=== PATIENT | male | born 1995 | race African-American/Black ===

== ENCOUNTER 2025-08-18 18:21 | Inpatient (IN) | payer MEDICAID, SELFPAY ==
--- OUTSIDE RECORDS SUMMARY | 2025-08-17 22:24 | XMS_ITS | Encounter Summary ---
Author Organization [facility]stem Address [address] [place] [address] Phone Care Team Providers Care Associate Research Scientist Name Role Phone Required, No Pcp/Pcp Not Primary Care Provider U navailable Reason for Visit * Reason Comments Psychiatric Evaluation Encounter Details Date Type Department Care Team (Latest Contact Info) Description 08/17/2025 10:24 PM EDT - 08/18/2025 3:39 PM EDT Hospital Encounter [facility] - Emergency Department [address] [place] [id number] Ezekiel Worthy MD [address] [place] [id number] Barry Barrera MD [address] [place] [address] [place] [address] [phone] Patrice Nice MD [address] [place] [address] [phone] Acute psychosis (CMS/HCC) (Primary Dx); Marijuana use; Cocaine use; Fentanyl use disorder, mild, abuse (CMS/HCC); Paranoid schizophrenia (CMS/HCC) [F20.0] Discharge Disposition: Psychiatric Facility Social History Tobacco Use Types Packs/Day Years Used Date Smoking Tobacco: Never Assessed Sex and Gender Information Value Date Recorded Sex Assigned at Not on file Legal Sex Male 10:24 PM EDT Gender Identity Not on file Sexual Orientation Not on file documented as of this encounter Last Filed Vital Signs Vital Sign Reading Time Taken Comments Blood Pressure 124/63 08/18/2025 8:54 AM EDT Pulse 89 08/18/2025 3:26 PM EDT Temperature 37.1 C (98.8 F) 08/18/2025 3:26 PM EDT Respiratory Rate 16 08/18/2025 3:26 PM EDT Oxygen Saturation 100% 08/18/2025 3:26 PM EDT Inhaled Oxygen Concentration - - Weight 68 kg (150 lb) 08/17/2025 10:55 PM EDT Height 172.7 cm (5' 8 ) 08/17/2025 10:55 PM EDT Body Mass Index 22.81 08/17/2025 10:55 PM EDT documented in this encounter Functional Status * Calculated C-SSRS Risk Score (Lifetime/Recent) Answer Date of Assessment Author No Risk Indicated 08/18/2025 2:20 AM EDT Scott Kaur MA * Suicidal Ideation Question Answer Date of Assessment Author 1. Wish to be (Lifetime) No 08/18/2025 2:20 AM EDT Scott Miranda MA 2. Non-Specific Active Suicidal Thoughts (Lifetime) No 08/18/2025 2:20 AM EDT Scott Lozada MA * Suicidal Behavior Question Answer Date of Assessment Author Actual Attempt (Lifetime) No 08/18/2025 2:20 AM EDT Scott Miranda MA Has subject engaged in non-suicidal self-injurious behavior? (Lifetime) No 08/18/2025 2:20 AM EDT Yuniel Miranda MA Interrupted Attempts (Lifetime) No 08/18/2025 2:20 AM EDT John Miranda MA Aborted or Self-Interrupted Attempt (Lifetime) No 08/18/2025 2:20 AM EDT John Miranda MA Preparatory Acts or Behavior (Lifetime) No 08/18/2025 2:20 AM EDT John Miranda MA documented as of this encounter Discharge Summaries * Elizabeth Justice NP - 08/18/2025 3:39 PM EDT Psychiatric Observation Discharge Summary Patient Name: Kyle Ring Date of : 1995 Date of Service: 08/18/2025 Length of Service: 08/17/2025 - .08/18/2025 Final Diagnoses: Problem List[1] CURRENT DIAGNOSIS: Psychosis Problem List[2] REASON FOR ADMISSION TO [facility]: Psychosis HOSPITAL COURSE Admitted to Psychiatric Observation Service for management of psychosis Started Zyprexa Limited improvement in symptoms Psychosis continued throughout hospitalization continue to recommend inpatient psychiatric placement, Renetta has found placement at [place] where patient will be transferred to for ongoing care. DISCHARGE MEDICATIONS Current Medications[3] MENTAL STATUS UPON DISCHARGE General Appearance: Well groomed, alert able to engage in assessment Attention: good Orientation: Person, Place, Location and Time Cooperativeness: Pleasant and easy to engage Psychomotor Activity: Laying in bed, does not appear restless Muscle Strength and Tone: WNL Gait and Station: No gait imbalances noted Eye Contact: Good Speech: Normal rate and rhythm Mood: Anxious Affect: Full range of affect Thought Process/Stream: Linear and organized Thought Content: taking about recent pacing and rambling behaviors Delusions: Paranoia Perceptual Hallucinations: Not reported although appears preoccupied Sensorium: Alert General fund of knowledge: Intact Recent & Remote Memory: Intact Insight: Poor Judgment: Impaired Suicidal thoughts: Not reported Homicidal thoughts: Not reported ROS Constitutional: No fever, no weight loss Musculoskeletal: NO EPS Positive: psychosis Negative for: headache, sore throat, chest pain, dizziness, blurred vision, fatigue, joint pain, constipation, skin itchiness, dysuria, cough, SOB, vomiting, diarrhea, nausea, abdominal pain. CONDITION AT DISCHARGE Continues with psychosis Danger to self with impaired insight/judgement at risk of harming self or others DISPOSITION Requires Psychiatric Inpatient level of Care POST-DISCHARGE PLAN: Admit to [facility] Accepting Physician - Dr. Alex Justice NP [1] Patient Active Problem List Diagnosis Paranoid schizophrenia (CMS/HCC) [2] Patient Active Problem List Diagnosis Paranoid schizophrenia (CMS/HCC) [3] Current Facility-Administered Medications: acetaminophen (TYLENOL) tablet 650 mg, 650 mg, Oral, q6h PRN, Elizabeth Justice NP OLANZapine (ZYPREXA) tablet 5 mg, 5 mg, Oral, Nightly, Elizabeth Justice NP OLANZapine (ZYPREXA) tablet 5 mg, 5 mg, Oral, q6h PRN, Elizabeth Justice NP No current outpatient medications on file. documented in this encounter Discharge Instructions * Discharge Instructions* Ezekiel Worthy MD - 08/18/2025 6:05 AM EDT Mental health care plan as discussed and arranged. Please follow-up with your primary care provider or a primary care provider at [facility] [phone] or a primary care provider at [facility] [phone] as soon as possible, please call today for an appointment. Please return for feelings of wanting to hurt yourself or others or for any other difficulty. * Attachments The following attachments cannot be sent through Care Everywhere. * Acute Psychosis Discharge Instructions (Lithuanian) documented in this encounter H&P Notes * Elizabeth Justice NP - 08/18/2025 9:09 AM EDT PSYCHIATRIC OBSERVATION ADMISSION H&P REASON FOR CONSULT A psychiatric consult was placed by Dr. Ezekiel Worthy for evaluation of a patient with increased psychosis. The patient's record was reviewed, patient was interviewed, and clinical staff were consulted to complete this comprehensive psychiatric consultation. Patient Name: Kyle Ring Date of : 1995 Date of Service: 08/18/2025 Time of Service: 9:10 AM Length of Service: 74 minutes Source of information: Patient, Staff collateral CHIEF COMPLAINT: I was rambling and pacing back and forth HISTORY OF PRESENT ILLNESS The patient is a 30 y.o. male with a psychiatric history of schizophrenia who presented on 08/17/2025 to the Emergency Department with symptoms of increased psychosis brought to the ED on a section 12 by police after being found to be self dialoging in the community acting erratically. The patient in the ED presents as calm and cooperative, easy to engage. He reports recent decreased sleep the past 3 days and reports having vague paranoia and reports recently in the community he was pacing. He reports living with his parents but occasionally reports he will go out for a few days and is vague on where he stays during those times. He reports a history of going inpatient psych in the past 2021 going to a facility in [place] and reports he was in the past on Risepridone but did not like itso he subsequently stopped taking it. He denies having any outpatient psychiatric supports. He denies any substance use reporting he did use Marijuana yesterday but reports he had not otherwise used it in some time, of note tox was positive for fentanyl, cocaine and THC. He denies any AVH, SI or HIbut appears somewhat preoccupied. He was agreeable to trailing Zyprexa 5 mg at bedtime to help withsleep and psychosis in the ED. At this time Aarone are involved in the treatment planning for this patient. Presenting Problem: psychosis, erratic behaviors Frequency: increased the past few days Modifiable factors: medication, psychiatric support Severity: severe PAST PSYCHIATRIC HISTORY Outpatient psychiatric providers: Provider: Denies Therapist: Denies Past medication trials: Risperidone in the past History of inpatient psychiatric hospitalization: August 2022 in [place] History of suicide attempts: Denies History of Self-Injurious behavior: Denies History of violence towards others: Denies History of eating disorder:Denies History of Trauma:Denies FAMILY PSYCHIATRIC HISTORY Family history of psychiatric illness: Was unsure of any family history of mental illness SUBSTANCE HISTORY: Only listing what is appropriate History of: Alcohol use: Denies Tobacco use: Daily use Marijuana use: used yesterday had not used in some time prior to that Opioid use: Denies --tox + fentanyl Cocaine use: Denies-- Tox + cocaine MEDICAL/SURGICAL HISTORY: Name of outpatient PCP: No primary care provider on file. History of: Head injury: Denies Seizures: Denies BOOK SHELVER infection: Denies Chronic pain: Denies Obstructive Sleep Apnea (BLADIMIR):Denies SOCIAL HISTORY: Living situation: lives with parents : Children: 4 yo son who lives with his Employment: Denies reports he worked in April in [employer] Social History Socioeconomic History Marital status: Not on file Spouse name: Not on file Number of children: Not on file Years of education: Not on file Highest education level: Not on file Occupational History Not on file Tobacco Use Smoking status: Not on file Smokeless tobacco: Not on file Substance and Sexual Activity Alcohol use: Not on file Drug use: Not on file Sexual activity: Not on file Other Topics Concern Not on file Social History Narrative Not on file Social Drivers of Health Financial Resource Strain: Not on file Food Insecurity: Not on file Transportation Needs: Not on file Physical Activity: Not on file Stress: Not on file Social Connections: Not on file Intimate Partner Violence: Not on file Housing Stability: Not on file ALLERGIES: Allergies[1] RELEVANT LABS: Recent Results (from the past week) CBC with auto differential Collection Time: 08/17/25 10:53 PM Result Value Ref Range WBC 6.9 4.5 - 10.8 10*3 ??l RBC 4.70 4.70 - 6.10 10*6 ??l Hemoglobin 14.5 14.0 - 18.0 g/dL Hematocrit 41.6 (L) 42.0 - 52.0 % MCV 89 80 - 95 fL MCH 30.9 25.4 - 39.0 pg MCHC 34.9 31.0 - 37.0 g/dL RDW 12.0 11.5 - 14.5 % Platelets 242 150 - 450 10*3 ??l MPV 10.6 7.0 - 11.0 fL Neutrophils % 52.9 40.0 - 80.0 % Lymphocytes % 31.5 20.0 - 40.0 % Monocytes % 12.6 (H) 2.0 - 10.0 % Eosinophils % 1.9 1.0 - 6.0 % Basophils % 0.7 0.0 - 1.0 % Immature Granulocyte % 0.4 0.0 - 0.9 % Neutrophils Absolute 3.67 2.00 - 7.00 K/mm3 Absolute Immature Granulocyte 0.03 0.00 - 0.09 K/mm3 Lymphocytes Absolute 2.18 1.00 - 3.00 K/mm3 Monocytes Absolute 0.87 0.20 - 1.00 K/mm3 Eosinophils Absolute 0.13 0.00 - 0.50 K/mm3 Basophils Absolute 0.05 0.00 - 0.10 K/mm3 Comprehensive metabolic panel Collection Time: 08/17/25 10:53 PM Result Value Ref Range Glucose 59 (L) 70 - 100 mg/dL BUN 18 6 - 19 mg/dL Creatinine 1.0 0.4 - 1.2 mg/dL eGFR >60.00 >60.00 mL/min/1.73m*2 Sodium 140 135 - 145 mmol/L Potassium 3.7 3.4 - 5.1 mmol/L Chloride 102 98 - 109 mmol/L CO2 28 22 - 29 mmol/L Anion Gap 10 6 - 16 mmol/L Calcium 9.8 8.5 - 10.5 mg/dL Total Bilirubin 0.4 0.2 - 1.2 mg/dL Alkaline Phosphatase 63 40 - 129 U/L ALT (SGPT) 141 (H) 0 - 40 U/L AST 99 (H) 0 - 37 U/L Total Protein 7.7 6.0 - 8.5 g/dL Albumin 4.5 3.3 - 5.2 g/dL Estimated Creatinine Clearance 103.9 mL/min Acetaminophen level Collection Time: 08/17/25 10:53 PM Result Value Ref Range Acetaminophen Level <5.1 <15.0 ug/mL Salicylate level Collection Time: 08/17/25 10:53 PM Result Value Ref Range Salicylate Level <=3.0 3.0 - 30.0 mg/dL Ethanol Collection Time: 08/17/25 10:53 PM Result Value Ref Range Ethanol <=10 0 - 10 mg/dL COVID-19 ([facility]) Collection Time: 08/17/25 10:53 PM Specimen: Nasopharynx; Swab Result Value Ref Range COVID-19 ([facility]) PCR Negative Negative Urine drugs of abuse screen Collection Time: 08/18/25 3:54 AM Result Value Ref Range Amphetamines, Urine Screen None Detected None Detected Barbiturates, Urine Screen None Detected None Detected Benzodiazepines, Urine Screen None Detected None Detected Cocaine, Urine Screen Positive (A) None Detected Opiates, Urine Screen None Detected None Detected Cannabinoids (THC), Urine Screen Positive (A) None Detected Tricyclic Antidepressants, Urine Screen None Detected None Detected Fentanyl, Urine Screen Positive (A) None Detected Methadone, Urine Screen None Detected None Detected Oxycodone, Urine Screen None Detected None Detected Buprenorphine, Urine Screen None Detected None Detected Phencyclidine, Urine Screen None Detected None Detected Urinalysis with reflex Collection Time: 08/18/25 3:54 AM Result Value Ref Range Color, Urine Yellow Colorless, Yellow Clarity, Urine Clear Clear Specific [place], Urine 1.017 1.002 - 1.030 pH, Urine 6.5 5.0 - 8.0 Leukocytes, Urine Negative Negative Nitrite, Urine Negative Negative Protein, Urine Negative Negative Glucose, Urine Negative Negative Ketones, Urine Negative Negative Bilirubin, Urine Negative Negative Blood, Urine Negative Negative MOST RECENT VITAL SIGNS: Vitals: 08/18/25 0854 BP: 124/63 Pulse: (!) 98 Resp: 14 Temp: SpO2: 99% MENTAL STATUS EXAM: Sensorium: Alert Appearance: Normal Grooming Behavior/Activity: Pleasant and easy to engage, sitting in bed Speech: Normal rate and rhythm Affect: Full range of affect, anxious Mood: Anxious Thought Form: Linear and organized Thought Content: talking about his rambling and pacing in the community Perceptual: None reported although presents as preoccupied Delusional Thoughts: paranoid Suicidal Ideation: None Homicidal Ideation: None Orientation: Person, Place, Location and Time Memory: limited Judgment/Impairment: Severely Impaired Attention/Concentration: Poor Capacity: Cannot leave AMA Health Care Proxy: not Invoked EPS: Within Normal Limits Gait: No gait imbalances noted 1:1 SI Precautions assessment Suicidal thoughts: No -Plan:No -Intent: No Suicidal or Self-harm behaviors: No Risk factors: psychosis Protective factors: Patient in good behavioral controls and is able to plan for safety, agreeable to reach out to staff if feeling unsafe. REVIEW OF SYSTEMS Constitutional: No fever, no weight loss Musculoskeletal: NO EPS Positive: psychosis, erratic behaviors Negative for: headache, sore throat, chest pain, dizziness, blurred vision, fatigue, joint pain, constipation, skin itchiness, dysuria, cough, SOB, vomiting, diarrhea, nausea, abdominal pain. CURRENT MEDICATIONS OUTPATIENT: No current outpatient medications ASSESSMENT: The patient presented to the Emergency Department with increased symptoms of psychosis and erratic behaviors in the context of underlying schizophrenia. The patient presents with symptoms consistent with worsening psychosis likely secondary to lack of psychiatric treatment in the community. The patient reports in the past being on Risperidone but did not want to restart this we discussed trail of Zyprexa 5 mg at bedtime and PRN which patient was receptive to trailing Discussed risks andbenefits of these medications with the patient and the patient was receptive to this medication treatment plan while in the ED. Continue to evaluate patient's mental status and monitor sleep and appetite closely, observe any potential side effects from psychiatric medications, and will recommend to start tapering antipsychotic medications once behavior is stabilized. Plan to continue to monitor possible interactions betweenpsychiatric medications and medical medications. Will continue to provide counseling to help patient deal with stressors, and provide education and support, while continuing to work with medicine to help facilitate patient's clinical progress. HPI and nursing notes were reviewed. Renetta are involved in the ongoing treatment planning for thispatient. At this time the patient may not leave AMA. Will continue video monitoring to mitigate elopement risk and monitor ongoing patient safety while boarding in the ED. Plan to continue to monitorthe patient while the patient remains in the hospital. Recommend at this time admission to psychiatric observation for medication adjustment and monitoring, at this time patient presents as at risk due to ongoing psychosis and impaired insight and judgement. Medical review of the labs: AST 99, ALT 141,COVID negative, Tox _ cocaine, fentanyl, THC, Qtc 392 DIAGNOSTIC IMPRESSION: Schizophrenia F Code: F20 Principal Problem: Paranoid schizophrenia (CMS/[facility]) (POA: Yes) PLAN: Admit to Psychiatric Observation Medication plan: Start Zyprexa 5 mg QHS PRN's: Add Zyprexa 5 mg Q6H PRN for psychosis Monitor: Continue video monitoring to mitigate elopement risk and monitor ongoing patient safety while boarding in the ED. Patient may not leave AMA Discussed risks and benefits of medication plan with patient who was agreeable to aforementioned treatment plan. Update Dr. Barrera to inform team of disposition. Renetta are involved with treatment planning. Elizabeth Justice NP 08/18/2025 9:10 AM [1] Not on File documented in this encounter Consult Notes * Scott Miranda MA - 08/18/2025 2:20 AM EDTAssociated Order(s): CONSULT TO ASPIRE/ ALICIA ALICIA Adult PIF/Assessment Service Attendant Cafeteria (R): Scott Miranda MA Date of Service (R): 08/18/2025 PERSONAL INFORMATION/DEMOGRAPHICS Patient Demographics Patient Name Kyle Ring Legal Sex Male SSN [id number] Phone (Permanent) Extended Emergency Contact Information Primary Emergency Contact: ROSA RING Mobile Relation: Father Currently Active Insurance Patient has no currently active insurance coverage. ED Arrival Date/Time (R): 08/17/2025 10:24 PM Consult Order Date/Time (R): 08/18/2025 12:23 AM Ready Date (R): Ready Time (R): Has this person received services here before? No Living Situation: with parents, brother Homeless? (R): No Collateral Contact: Rosa, Does the patient have a guardian? [facility] GUARDIAN: No Guardianship Contact: n/a Email Address: No e-mail address on record Ok to send a message? No Ask the person: Are you in a Dangerous Situation? No If Yes, please explain: (Follow and document per your emergency protocols) N/a Patient Preferred Languages Fabrication Operator Needed (Not on File) Spoken Language (Not on File) Written Language (Not on File) Assessment Location of Service (R): ED Who directed client to ED? (R) Section 12 Was the patient sent with a Section 12 (R) Yes Who signed Section 12? (R) Police Presenting Concerns: What has caused this person to seek Services at this time? Erratic behavior, ?psychosis Precipitating Factors: Bystander called 911 Medical/Physical No past medical history on file. Allergies Reported Allergies[1] Medications Prior to Admission medications Not on File Relevant History No family history on file. Social History[2] Addiction Is there a history of, or current substance use or other addictive behavior? No Was a toxicology screen performed? Yes Results: Pending Was Narcan administered during the last 30 days? No Explain (Please include date and time): n/a Addiction/ Substance Use History Substance Type First Use/Age of Onset Last Use Duration/Frequency Quantities Comments Alcohol Cannabis Cocaine/Crack Heroin Opiates/Narcotics Benzodiazepines Stimulants Hallucinogens Prescription Other: Click or tap here to enter text. Most Recent Acute Admission(s) and Treatment History Has there been a recent acute admission or treatment history? No Please include dates of admission, service type, name of agency/provider, goal/outcome: n/a Mental Status Exam/Risk Assessment Mental Status Exam/Risk Assessment (within normal limits unless checked, items checked are addressed in clinical formulation/narrative: Affect, Appearance, Appetite, Energy, Eye Contact, Impulsivity,Insight, Judgement, Mood, Perception: Delusions, Hallucinations, Sleep, and Thought Content *Harm to Self and Others include: Means, accessibility (included access to firearms), lethality of means, suicidal/assault history, lethality or attempts/assaults, family history, self- injurious behavior Risk and Protective Factors: RISK: age, gender, race, poor adherence to treatment PROT: supportive family Clinical Formulation/Narrative/Medical Necessity: The client is a 30-year-old single Black male, previously unknown to [facility], who was [facility] on a Section 12 due to erratic behavior and AMS after a good Taoism reportedly called 911 after seeing him walking in the street, self- dialoguing. His name is pronounced toearoldo. The client reports that he has not slept in at least three days. He reports increased appetite, energy, and activity over the same period. He reports that he typically feels this way for about three days, then ???crashes?? for two or three days, then the cycle repeats. He reports that he has mild paranoia at baseline, but he notes that it gets worse when he isn???t sleeping. He reports possible VH; he says he sometimes sees faces where they don???t belong, almost always in periods of insomnia.He reports that the only activity he engages in is walking; he says that his only source of stress is ???water.?? He denies substance use. He denies any trauma. He is unaware of any family history of MH/RAVI issues. He reports that he was on medications, but he does not know what they were, and he has not taken them in ???at least a year.?? He denies SI/HI/SIB. He denies AH, though he has reported AH to nursing staff. I spoke with the client???s father on the phone for collateral information. He says the client has ???not been normal in many months.?? He says that the client will often go off ???for days at a time,?? walking around the community, not sleeping. He says that he eventually crashes and sleeps wherever he is when that happens, even if it???s outside. He reports that the client often speaks to himillogically and nonsensically. He reports that he and his , the client???s mother, often find the client self-dialoguing. He describes the client as erratic and grandiose. He and his suspectsubstance use, but have no concrete evidence nor any specific suspicions. They report that he has been hospitalized before, in [place]. They note that he historically struggles to adhere to treatment. They are very concerned for his well-being. The client presents as polite and engageable. He is alert and oriented x4. He is wearing a hospitalgown, jeans, and socks. He is somewhat disheveled. His mood is difficult to gauge; his affect is restricted. He laughs incongruently at times. He has an adequate fund of knowledge and can articulate his thoughts. His thought process is mostly linear, with no overt evidence of paranoia or delusions present. His speech is WNL. His eye contact is intermittent. There is some psychomotor agitation present. He seems restless. His short-term and long- term memory appear intact. His insight, judgment, and impulse control are impaired. He is vaguely future-oriented. He appears to be an unreliable report er; he tries to backtrack and minimize more significant symptoms. Due to the client???s ongoing roberto with apparent psychotic elements, he is recommended for IPLOC. Plan discussed with Dr. Worthy. Clinical backup with BHANU Sage. Strengths and Services Preferences: Person's strengths and service preferences: None stated Is there a Safety Plan? (R): No If yes, please explain: n/a Was a Safety Plan completed or updated during the course of this intervention? (R) No If no, please explain: Client not able and/or willing to safety plan. Diagnosis Type Mental Health Only (R): Yes Substance Use Disorder Only (R): No Dual Diagnosis (R): No Comments: n/a Is this person diagnosed with Autism Spectrum Disorder? (R): No Was a Doc to Doc performed? (R): No Was this an Opiod overdose? (R): No Is this a SUDE (Substance Use Disorder Evaluation)? No Was there an ALICIA Peer or FP participating in the intervention? (R): No Who initiated FP intervention? (R): n/a Identified Needs and Goals for Treatment Stabilization Symptom mgmt Safety planning Medication eval & mgmt. 2. coping skills psychoeducation structure 3. Additional Recommendations Additional Recommendations: Outpatient Mental Health Provider and Partial Hospitalization If other, please explain: Disposition Details Information gathered from:Person Served, Family/Guardian, Hospital Staff, and Reports If other, please explain: Medical Clearance Requested (R): Yes Medical Clearance Requested by (R): ALICIA/CBL If other, please explain: Medical Clearance Provided (R): Yes Medical Clearance Provided Where? (R): ED If other, please explain: Clinical Consult done with: BHANU Sage Current Safety Assessment: Unable to plan for safety If other, please explain: Inital Disposition: Inpatient Psychiatric Private and Inpatient Psychiatric General Intervention Began Time (R): 219 Telehealth: NA Diagnosis: F31.2 Bipolar, manic, with psychotic features [1] Not on File [2] Cosigned by Lina Fowler MS at 08/18/2025 9:44 AM EDT documented in this encounter ED Notes * Lisa Hdez RN - 08/17/2025 10:33 PM EDT Kyle Ring is a 30 y.o. male presenting with Psychiatric Evaluation Pt presents to ED via EMS on [address] for report of psychosis. Pt found wandering down the road talking to himself. Making passive threats towards EMS. Refused VS. Unknown hx. documented in this encounter Miscellaneous Notes * Behavioral Health - Johana Mclean LICSW - 08/18/2025 1:58 PM EDT Client accepted to [facility] for today at 5pm and nurse Valencia notified. * Behavioral Health - Abi Tang MSW - 08/18/2025 1:13 PM EDT [facility] is requesting an EKG. This senior grant writer has requested this from nursing at [place] * Behavioral Health - Julianna Reynolds BA - 08/18/2025 11:19 AM EDT [facility] requesting EKG, Ultrasound, X-ray, CT. TW requested from nursing. documented in this encounter Plan of Treatment Pending Results Name Type Priority Associated Diagnoses Date /Time ECG ECG STAT 08/18/2025 1:1 8 PM EDT documented as of this encounter Procedures Procedure Name Priority Date/Time Associated Diagnosis Comments ECG 12-LEAD STAT 08/18/2025 1:18 PM EDT URINALYSIS WITH REFLEX STAT 3:54 AM EDT EXTRA URINE CULTURE TUBE STAT 08/18/2025 3:54 AM EDT URINE DRUGS OF ABUSE SCREEN STAT 08/18/2025 3:54 AM EDT URINALYSIS WITH REFLEX STAT 3:54 AM EDT COVID-19 ([facility]) STAT 08/17/2025 10:53 PM EDT CBC WITH AUTO DIFFERENTIAL STAT 08/17/2025 10:53 PM EDT ETHANOL STAT 08/17/2025 10:53 PM EDT ACETAMINOPHEN LEVEL STAT 08/17/2025 1 0:53 PM EDT SALICYLATE LEVEL STAT 08/17/2025 10:5 3 PM EDT COMPREHENSIVE METABOLIC PANEL STAT 08/17/2025 10:53 PM EDT documented in this encounter Results * Urinalysis with reflex (08/18/2025 3:54 AM EDT) Color, Urine Yellow Colorless, Yellow 08/18/2025 4:15 AM EDT [facility] Clarity, Urine Clear Clear 08/18/2025 4:15 AM EDT [facility] Specific [place], Urine 1.017 1.002 - 1.030 08/18/2025 4:15 AM EDT [facility] pH, Urine 6.5 5.0 - 8.0 08/18/2025 4:15 AM EDT [facility] Leukocytes, Urine Negative Negative 08/18/2025 4:15 AM EDT [facility] Nitrite, Urine Negative Negative 08/18/2025 4:15 AM EDT [facility] Protein, Urine Negative Negative 08/18/2025 4:15 AM EDT [facility] Glucose, Urine Negative Negative 08/18/2025 4:15 AM EDT [facility] Ketones, Urine Negative Negative 08/18/2025 4:15 AM EDT [facility] Bilirubin, Urine Negative Negative 08/18/2025 4:15 AM EDT [facility] Blood, Urine Negative Negative 08/18/2025 4:15 AM T [facility] Urine Urine specimen obtained by clean catch procedure / Unknown Non-blood Collection / Unknown 08/18/2025 3:54 AM EDT 08/18/2025 4:07 AM EDT Narrative [facility] - 08/18/2025 4:15 AM EDT Per protocol, no culture performed. For protocol inquiries or add-on testing, please call Infectious Disease at [phone] or [phone]. us Ezekiel Worthy MD LAB URINE ORDERABLES Final Result [facility] [address] [place] [address], * Extra Urine Culture Tube (08/18/2025 3:54 AM EDT) Extra Tube 08/18/2025 10:01 AM EDT [facility] Comment:An Extra tube was co llected from this patient. Please follow add on workflow or contact the Laboratory if you wish to place orders on this specimen. Urine Urine specimen obtained by clean catch procedure / Unknown Non-blood Collection / Unknown 08/18/2025 3:54 AM EDT 08/18/2025 4:07 AM EDT us Ezekiel Worthy MD LAB MICROBIOLOGY - GENERAL ORDERABLES Final Result [facility] [address] [place] [address], [place] [phone] * (ABNORMAL) Urine drugs of abuse screen (08/18/2025 3:54 AM EDT) Pathologist [facility] Amphetamines, Urine Screen None Detected None Detected 08/18/2025 4:37 AM EDT [facility] Barbiturates, Urine Screen None Detected None Detected 08/18/2025 4:37 AM EDT [facility] Benzodiazepines, Urine Screen None Detected None Detected 08/18/2025 4:37 AM EDT [facility] Cocaine, Urine Screen Positive(A) None Detected 08/18/2025 4:37 AM [facility] Opiates, Urine Screen None Detected None Detected 08/18/2025 4:37 AM [facility] Cannabinoids (THC), Urine Screen Positive(A) None Detected 08/18/2025 4:37 AM [facility] Tricyclic Antidepressants, Urine Screen None Detected None Detected 08/18/2025 4:37 AM [facility] Fentanyl, Urine Screen Positive(A) None Detected 08/18/2025 4:37 AM EDT [facility] Methadone, Urine Screen None Detected None Detected 08/18/2025 4:37 AM [facility] Oxycodone, Urine Screen None Detected None Detected 08/18/2025 4:37 AM [facility] Buprenorphine, Urine Screen None Detected None Detected 08/18/2025 4:37 AM T [facility] Phencyclidine, Urine Screen None Detected None Detected 08/18/2025 4:37 AM [facility] Urine Urine specimen obtained by clean catch procedure / Unknown Non-blood Collection / Unknown 08/18/2025 3:54 AM EDT 08/18/2025 4:06 AM EDT [facility] - 08/18/2025 4:37 AM EDT This is a screening test for urine drugs of ABUSE only, performed using Gail Rudy analyzer. It is not designed or intended to monitor treatment or assess patient compliance. Those purposes are best served by a specific assay for the specific drug being administered. Like any screening test, this drug screen has inherent limitations. A result of NONE DETECTED indicates the absence of the major metabolites of the tested drugs or their presence at a level below the cut-off concentration (see below). False negative results may be due to the pharmacokinetics of the drug and/or the timing of the sample relative to the use of the drug in question. A POSITIVE result is a presumptive qualitative positive which indicates that the major metabolites of the tested drugs are likely present at or above their cut- off concentration (see below). False positive results may be caused by cross-reacting substances. Unconfirmed positive results of this screening test must not be used for non- medical purposes. Cutoffs for Drug Classes: Amphetamines 1000 ng/mL Barbiturates 200 ng/mL Benzodiazepines 100 ng/mL Cocaine 300 ng/mL Opiates 300 ng/mL TCA 300 ng/mL THC 50 ng/mL Fentanyl 5 ng/mL Methadone 300 ng/ml Oxycodone 100 ng/ml Buprenorphine 5 ng/ml Phencyclidine 25 ng/ml Ezekiel Worthy MD LAB URINE ORDERABLES Final Result [facility] [address] [place] [address], * COVID-19 ([facility]) (08/17/2025 10:53 PM EDT) COVID-19 ([facility]) PCR Negative Negative LTT PANTHER ANALYZER-DP H 08/18/2025 1:29 AM EDT [facility] Swab (Nasopharynx) Non-blood Collection / Unknown 08/17/2025 10:53 PM EDT 08/17/2025 10:59 PM EDT Ezekiel Worthy MD LAB MICROBIOLOGY - GENERAL ORDERABLES Final Result [facility] [address] [place] [address], * Ethanol (08/17/2025 10:53 PM EDT) Ethanol <=10 0 - 10 mg/dL 08/17/2025 11:28 PM EDT [facility] Comment:NONE DETECTED: Resul t <10 should be interpreted as NONE DETECTED. Blood Venous blood / Unknown Venipuncture / Unknown 08/17/2025 10:53 PM EDT 08/17/2025 10:59 PM EDT Ezekiel Worthy MD LAB BLOOD ORDERABLES Final Result Performing Organization Address City/[facility]/ZIP Co de Phone Number [facility] [address] [place] [address], [place] [phone] * Salicylate level (08/17/2025 10:53 PM EDT) Salicylate Level <=3.0 3.0 - 30.0 mg/dL 08/17/2025 11:28 PM EDT [facility] Blood Venous blood / Unknown Venipuncture / Unknown 08/17/2025 10:53 PM EDT 08/17/2025 10:59 PM EDT Ezekiel Worthy MD LAB BLOOD ORDERABLES Final Result [facility] [address] [place] [address], [place] [phone] * Acetaminophen level (08/17/2025 10:53 PM EDT) Acetaminophen Level <5.1 <15.0 ug/mL 08/17/2025 11:28 PM EDT [facility] Blood Venous blood / Unknown Venipuncture / Unknown 08/17/2025 10:53 PM EDT 08/17/2025 10:59 PM EDT Ezekiel Worthy MD LAB BLOOD ORDERABLES Final Result [facility] [address] [place] [address], [place] [phone] * (ABNORMAL) Comprehensive metabolic panel (08/17/2025 10:53 PM EDT) Glucose 59(L) 70 - 100 mg/dL 08/17/2025 11:27 PM EDT [facility] BUN 18 6 - 19 mg/dL 08/17/2025 11:27 PM EDT [facility] Creatinine 1.0 0.4 - 1.2 mg/dL 08/17/2025 11:27 PM EDT [facility] eGFR >60.00 >60.00 mL/min/1.7 3m*2 08/17/2025 11:27 PM EDT [facility] Sodium 140 135 - 145 mmol/L 08/17/2025 11:27 PM EDT [facility] Potassium 3.7 3.4 - 5.1 mmol/L 08/17/2025 11:27 PM EDT [facility] Chloride 102 98 - 109 mmol/L 08/17/2025 11:27 PM EDT [facility] CO2 28 22 - 29 mmol/L 08/17/2025 11:27 PM EDT [facility] Anion Gap 10 6 - 16 mmol/L 08/17/2025 11:27 PM EDT [facility] Calcium 9.8 8.5 - 10.5 mg/dL 08/17/2025 11:27 PM EDT [facility] Total Bilirubin 0.4 0.2 - 1.2 mg/dL 08/17/2025 11:27 PM EDT [facility] Alkaline Phosphatase 63 40 - 129 U/L 08/17/2025 11:27 PM EDT [facility] ALT (SGPT) 141(H) 0 - 40 U/L 08/17/2025 11:27 PM EDT [facility] AST 99(H) 0 - 37 U/L 08/17/2025 11:27 PM EDT [facility] Total Protein 7.7 6.0 - 8.5 g/dL 08/17/2025 11:27 PM EDT [facility] Albumin 4.5 3.3 - 5.2 g/dL 08/17/2025 11:27 PM EDT [facility] Estimated Creatinine Clearance 103.9 mL/min 08/17/2025 11:27 PM EDT [facility] Blood Venous blood / Unknown Venipuncture / Unknown 08/17/2025 10:53 PM EDT 08/17/2025 10:59 PM EDT Ezekiel Worthy MD LAB BLOOD ORDERABLES Final Result [facility] [address] [place] [address], [place] [phone] * (ABNORMAL) CBC with auto differential (08/17/2025 10:53 PM EDT) WBC 6.9 4.5 - 10.8 10*3 l 08/17/2025 11:04 PM EDT [facility] RBC 4.70 4.70 - 6.10 10*6 l 08/17/2025 11:04 PM EDT [facility] Hemoglobin 14.5 14.0 - 18.0 g/dL 08/17/2025 11:04 PM EDT [facility] Hematocrit 41.6(L) 42.0 - 52.0 % 08/17/2025 11:04 PM EDT [facility] MCV 89 80 - 95 fL 08/17/2025 11:04 PM EDT [facility] MCH 30.9 25.4 - 39.0 pg 08/17/2025 11:04 PM EDT [facility] MCHC 34.9 31.0 - 37.0 g/dL 08/17/2025 11:04 PM EDT [facility] RDW 12.0 11.5 - 14.5 % 08/17/2025 11:04 PM EDT [facility] Platelets 242 150 - 450 10*3 l 08/17/2025 11:04 PM EDT [facility] MPV 10.6 7.0 - 11.0 fL 08/17/2025 11:04 PM EDT [facility] Neutrophils % 52.9 40.0 - 80.0 % 08/17/2025 11:04 PM EDT [facility] Lymphocytes % 31.5 20.0 - 40.0 % 08/17/2025 11:04 PM EDT [facility] Monocytes % 12.6(H) 2.0 - 10.0 % 08/17/2025 11:04 PM EDT [facility] Eosinophils % 1.9 1.0 - 6.0 % 08/17/2025 11:04 PM EDT [facility] Basophils % 0.7 0.0 - 1.0 % [facility] Immature Granulocyte % 0.4 0.0 - 0.9 % 08/17/2025 11:04 PM EDT [facility] Neutrophils Absolute 3.67 2.00 - 7.00 K/mm3 08/17[facility]2025 [facility] Absolute Immature Granulocyte 0.03 0.00 - 0.09 K/mm3 08/17/2025 11:[facility] Lymphocytes Absolute 2.18 1.00 - 3.00 K/mm3 08/17/2025 11:04 PM [facility] Monocytes Absolute 0.87 0.20 - 1.00 K/mm3 08/17/2025 11:04 PM [facility] Eosinophils Absolute 0.13 0.00 - 0.50 K/mm3 08/17/2025 11:04 PM [facility] Basophils Absolute 0.05 0.00 - 0.10 K/mm3 08/17/2025 11:04 PM [facility] Blood Venous blood / Unknown Venipuncture / Unknown 08/17/2025 10:53 PM EDT 08/17/2025 10:59 PM EDT us Ezekiel Worthy MD LAB BLOOD ORDERABLES Final Result [facility] [address] [place] [address], [place] [phone] documented in this encounter Visit Diagnoses Diagnosis Paranoid schizophrenia (CMS/HCC)- Primary Paranoid schizophrenia, unspecified condition Acute psychosis (CMS/HCC) Marijuana use Cocaine use Fentanyl use disorder, mild, abuse (CMS/HCC) Paranoid schizophrenia (CMS/HCC) [F20.0] Paranoid schizophrenia, unspecified condition documented in this encounter Admitting Diagnoses Diagnosis Paranoid schizophrenia (CMS/HCC) Paranoid schizophrenia, unspecified condition documented in this encounter Administered Medications documented in this encounter Active and Recently Administered Medications Times are shown in EDT. Scheduled Medication Order 08/16/2025 08/17/2025 08/18/2025 OLANZapine (ZYPREXA) tablet 5 mg 5 mg, Oral, Nightly, First dose on Mon08/18/25 at 2100 PRN Medication Order 08/16/2025 08/17/2025 08/18/2025 acetaminophen (TYLENOL) tablet 650 mg 650 mg, Oral, Every 6 hours PRN, pain 1-3 or if patient refuses opiate (if ordered), pain 4-6 or if patient refuses opiate (if ordered), pain 7-10, Starting on Mon08/18/25 at 0908 OLANZapine (ZYPREXA) tablet 5 mg 5 mg, Oral, Every 6 hours PRN, restlessness / irritability, Starting on Mon08/18/25 at 0909 documented in this encounter Additional Health Concerns Infection Onset Date Last Indicated Resolved Time Covid Possible 08/17/2025 08/17/2025 08/18/2025 1: 29 AM EDT documented as of this encounter Care Teams Associate Research Scientist Relationship Specialty Start Date End Date Required, No Pcp/Pcp Not [address] [place] [phone] PCP - General Vp [employer] 08/17/25 documented as of this encounter
[2025-08-18 18:55] VITALS: BP 114/57; PULSE 71; RESP 14; TEMP 37.2; O2SAT 98
[2025-08-18 19:03] VITALS: BMI 22.8
--- NOTE | 2025-08-18 19:42 | PC.NURSE ---
Admission risk Assessment completed and entered. He denies SI, past or present. He denies current HI but does admit to feeling homicidal in the past. Admits to [facility] when sleep deprived. Denies Tobacco use, endorses occasional marijuana and cocaine use, sometimes up to 3x week. Tox screen positive for cocaine and fentanyl. He insists he has not knowingly used fentanyl. Denies ETOH use. He declined the flu vaccine.
[2025-08-18 20:00] VITALS: BP 136/61; PULSE 78; TEMP 36.6; O2SAT 96
--- OUTSIDE RECORDS SUMMARY | 2025-08-18 20:57 | XMS_ITS | Patient Health Record ---
Author Organization [facility] Address [address] [place] [address] [address] [place] [address] Support Name Relationship Address Phone Kyle Finch Guarantor Unknown Unav ailable Allergies No Known Allergies Reason For Referral No Information Medications Medication SIG (Take, Route, Fr equency, Duration) Notes Start Date End Date Status ARIPiprazole 10 MG TAKE 1 TABLET BY ANUSHA TH EVERY DAY FOR 30 DAYS; Duration: 90 Ac tive Cleocin-T 1 % 1 application Commercial Subcontractor ally Twice a day; Duration: 30 days 11/26/2022 Active Acyclovir 400 MG 1 tablet Orally Twic e a day; Duration: 10 day(s) 11/26/2022 Active hydrOXYzine HCl 25 MG TAKE 1 TABLET BY M OUTH EVERY DAY AT BEDTIME NEEDED FOR 30 DAYS; Duration: 90 Active Social History Sex Assigned At : Social History Observation Description Sex Assigned At Male Problems Problem Type SNOMED Code ICD Code Onset Dates Problem Status W/U Status Risk Notes Problem Paranoid schizophrenia (75961883) Paranoid schizophrenia (F20.0) Active confirmed Problem History of psychiatric disorder (406453132) History of roberto (Z86.59) Active confirmed Plan Of Treatment No Information Medical (General) History Medical History History ICD Code Schizophrenia (? Paranoid) Paranoia Manic episode Facial Acne Surgical History Surgery Date(Month/Year)
--- OUTSIDE RECORDS SUMMARY | 2025-08-18 20:57 | XMS_ITS | Clinical Summary ---
Author Organization [facility] Address [address] [place] [address] Phone Care Team Providers Care Spot Machine Operator Name Role Phone Unavailable Primary Care Provider Unavailabl e Social History Tobacco Use Types Packs/Day Years Used Date Smoking Tobacco: Never Assessed Sex and Gender Information Value Date Recorded Sex Assigned at Not on file Legal Sex Male 12:05 PM EDT Gender Identity Not on file Sexual Orientation Not on file Last Filed Vital Signs Vital Sign Reading Time Taken Comments Blood Pressure 119/71 09/23/2022 8:58 AM EST Pulse 100 09/23/2022 8:58 AM EST Temperature 36.9 C (98.4 F) 09/23/2022 8:58 AM EST Respiratory Rate 16 09/23/2022 8:58 AM EST Oxygen Saturation 100% 09/23/2022 8:58 AM EST Inhaled Oxygen Concentration - - Weight 59.9 kg (132 lb) 09/20/2022 9:33 PM EST Height 172.7 cm (5' 8 ) 09/20/2022 8:38 PM EST Body Mass Index 20.07 09/20/2022 8:38 PM EST Plan of Treatment Not on file
--- OUTSIDE RECORDS SUMMARY | 2025-08-18 20:57 | XMS_ITS | Clinical Summary ---
Author Organization [facility] ystem Address [address] [place] [address] Phone Care Team Providers Care Business Development Analyst Name Role Phone Required, No Pcp/Pcp Not Primary Care Provider U navailable Medications No known medications Active Problems Problem Noted Date Diagnosed Date Paranoid schizophrenia 08/18/2025 Encounters Date Type Department Care Team Description 08/17/2025 10:24 PM EDT - 08/18/2025 3:39 PM EDT Hospital Encounter [facility] - Emergency Department [address] [place] [id number] Ezekiel Worthy MD Rice, MD Tex Kaplan, Patrice Pandey MD Acute psychosis (CMS/HCC) (Primary Dx); Marijuana use; Cocaine use; Fentanyl use disorder, mild, abuse (CMS/HCC); Paranoid schizophrenia (CMS/HCC) [F20.0] Discharge Disposition: Psychiatric Facility from Last 3 Months Social History Tobacco Use Types Packs/Day Years [...] Mass Index 22.81 08/17/2025 10:55 PM EDT Plan of Treatment Health Maintenance Due Date Last Done Comments [facility] Topic HIV Screening 1995 [facility] Topic Hepatitis C Screening 1995 [facility] Topic Tdap Vaccine (1 - Tdap) 2014 [facility] Topic Lipid Profile 5 years 2017 [facility] Topic Influenza (Flu) Seasonal (#1) 2025 [facility] Topic Shingrix (1 of 2) 2045 [facility] AMB RSV (under 20 months) Aged Out No longer eligible based on patient's age to complete this topic [facility] Topic HIB Vaccines Aged Out No longer eligible based on patient's age to complete this topic [facility] Topic HPV Vaccines Aged Out No longer eligible based on patient's age to complete this topic Procedures Procedure Name Priority Date/Time Associated Diagnosis Comments ECG 12-LEAD STAT 08/18/2025 1:18 PM EDT URINALYSIS WITH REFLEX STAT 3:54 AM EDT URINALYSIS WITH REFLEX STAT 3:54 AM EDT URINE DRUGS OF ABUSE SCREEN STAT 08/18/2025 3:54 AM EDT EXTRA URINE CULTURE TUBE STAT 08/18/2025 3:54 AM EDT ETHANOL STAT 08/17/2025 10:53 PM EDT SALICYLATE LEVEL STAT 08/17/2025 10:5 3 PM EDT ACETAMINOPHEN LEVEL STAT 08/17/2025 1 0:53 PM EDT COMPREHENSIVE METABOLIC PANEL STAT 08/17/2025 10:53 PM EDT CBC WITH AUTO DIFFERENTIAL STAT 08/17/2025 10:53 PM EDT COVID-19 ([facility]) STAT 08/17/2025 10:53 PM EDT from Last 3 Months Results * Urinalysis with reflex (08/18/2025 3:54 AM EDT) Color, Urine Yellow Colorless, Yellow 08/18/2025 4:15 AM EDT [facility] Clarity, Urine Clear Clear 08/18/2025 4:15 AM EDT [facility] Specific [place], Urine 1.017 1.002 - 1.030 08/18/2025 4:15 AM EDT [facility] pH, Urine 6.5 5.0 - 8.0 08/18/2025 4:15 AM EDT [facility] Leukocytes, Urine Negative Negative 08/18/2025 4:15 AM EDT [facility] Nitrite, Urine Negative Negative 08/18/2025 4:15 AM EDT [facility] Protein, Urine Negative Negative 08/18/2025 4:15 AM EDT [facility] Glucose, Urine Negative Negative 08/18/2025 4:15 AM EDT [facility] Ketones, Urine Negative Negative 08/18/2025 4:15 AM EDT [facility] Bilirubin, Urine Negative Negative 08/18/2025 4:15 AM EDT [facility] Blood, Urine Negative Negative 08/18/2025 4:15 AM EDT [facility] Urine Urine specimen obtained by clean catch procedure / Unknown Non-blood Collection / Unknown 08/18/2025 3:54 AM EDT 08/18/2025 4:07 AM EDT [facility] - 08/18/2025 4:15 AM EDT Per protocol, no culture performed. For protocol inquiries or add-on testing, please call Infectious Disease at [phone] or [phone]. us Ezekiel Worthy MD LAB URINE ORDERABLES Final Result [facility] [address] [place] [address], * Extra Urine Culture Tube (08/18/2025 3:54 AM EDT) Extra Tube 08/18/2025 10:01 AM EDT [facility] Comment:An Extra tube was co llected from this patient. Please follow add on workflow or contact the Laboratory if you wish to place orders on this specimen. Urine Urine specimen obtained by clean catch procedure / Unknown Non-blood Collection / Unknown 08/18/2025 3:54 AM EDT 08/18/2025 4:07 AM EDT us Ezekiel Worthy MD LAB MICROBIOLOGY - GENERAL ORDERABLES Final Result [facility] [address] [place] [address], [place] [phone] * (ABNORMAL) Urine drugs of abuse screen (08/18/2025 3:54 AM EDT) Amphetamines, Urine Screen None Detected None Detected 08/18/2025 4:37 AM EDT [facility] Barbiturates, Urine Screen None Detected None Detected 08/18/2025 4:37 AM [facility] Benzodiazepines, Urine Screen None Detected None Detected 08/18/2025 4:37 AM [facility] Cocaine, Urine Screen Positive(A) None Detected 08/18/2025 4:37 AM [facility] Opiates, Urine Screen None Detected None Detected 08/18/2025 4:37 AM [facility] Cannabinoids (THC), Urine Screen Positive(A) None Detected 08/18/2025 4:37 AM T [facility] Tricyclic Antidepressants, Urine Screen None Detected None Detected 08/18/2025 4:37 AM [facility] Fentanyl, Urine Screen Positive(A) None Detected 08/18/2025 4:37 AM EDT [facility] Methadone, Urine Screen None Detected None Detected 08/18/2025 4:37 AM [facility] Oxycodone, Urine Screen None Detected None Detected 08/18/2025 4:37 AM [facility] Buprenorphine, Urine Screen None Detected None Detected 08/18/2025 4:37 AM EDT [facility] Phencyclidine, Urine Screen None Detected None Detected 08/18/2025 4:37 AM EDT [facility] Urine Urine specimen obtained by clean catch procedure / Unknown Non-blood Collection / Unknown 08/18/2025 3:54 AM EDT 08/18/2025 4:06 AM EDT [facility] - 08/18/2025 4:37 AM EDT This [...] ng/ml Buprenorphine 5 ng/ml Phencyclidine 25 ng/ml us Ezekiel Worthy MD LAB URINE ORDERABLES Final Result [facility] [address] [place] [address], * COVID-19 ([facility]) (08/17/2025 10:53 PM EDT) COVID-19 ([facility]) PCR Negative Negative LTT PANTHER ANALYZER-DP H 08/18/2025 1:29 AM EDT [facility] Swab (Nasopharynx) Non-blood Collection / Unknown 08/17/2025 10:53 PM EDT 08/17/2025 10:59 PM EDT Ezekiel Worthy MD LAB MICROBIOLOGY - GENERAL ORDERABLES Final Result [facility] [address] [place] [address], * (ABNORMAL) CBC with auto differential (08/17/2025 10:53 PM EDT) WBC 6.9 4.5 - 10.8 10*3 l 08/17/2025 11:04 PM EDT [facility] RBC 4.70 4.70 - 6.10 10*6 l 08/17/2025 11:04 PM EDT [facility] Hemoglobin 14.5 14.0 - 18.0 g/dL 08/17/2025 11:04 PM EDT [facility] Hematocrit 41.6(L) 42.0 - 52.0 % 08/17/2025 11:04 PM EDT [facility] MCV 89 80 - 95 fL 08/17/2025 11:04 PM EDT [facility] MCH 30.9 25.4 - 39.0 pg 08/17/2025 11:04 PM EDT [facility] MCHC 34.9 31.0 - 37.0 g/dL 08/17/2025 11:04 PM EDT [facility] RDW 12.0 11.5 - 14.5 % 08/17/2025 11:04 PM EDT [facility] Platelets 242 150 - 450 10*3 l 08/17/2025 11:04 PM EDT [facility] MPV 10.6 7.0 - 11.0 fL 08/17/2025 11:04 PM EDT [facility] Neutrophils % 52.9 40.0 - 80.0 % 08/17/2025 11:04 PM EDT [facility] Lymphocytes % 31.5 20.0 - 40.0 % 08/17/2025 11:04 PM EDT [facility] Monocytes % 12.6(H) 2.0 - 10.0 % 08/17/2025 11:04 PM EDT [facility] Eosinophils % 1.9 1.0 - 6.0 % 08/17/2025 11:04 PM EDT [facility] Basophils % 0.7 0.0 - 1.0 % 08/17/2025 11:04 PM EDT [facility] Immature Granulocyte % 0.4 0.0 - 0.9 % 08/17/2025 11:04 PM EDT [facility] Neutrophils Absolute 3.67 2.00 - 7.00 K/mm3 08/17/2025 11:04 PM EDT [facility] Absolute Immature Granulocyte 0.03 0.00 - 0.09 K/mm3 08/17/2025 11:04 PM EDT [facility] Lymphocytes Absolute 2.18 1.00 - 3.00 K/mm3 08/17/2025 11:04 PM EDT [facility] Monocytes Absolute 0.87 0.20 - 1.00 K/mm3 08/17/2025 11:04 PM EDT [facility] Eosinophils Absolute 0.13 0.00 - 0.50 K/mm3 08/17/2025 11:04 PM EDT [facility] Basophils Absolute 0.05 0.00 - 0.10 K/mm3 08/17/2025 11:04 PM EDT [facility] Blood Venous blood / Unknown Venipuncture / Unknown 08/17/2025 10:53 PM EDT 08/17/2025 10:59 PM EDT Ezekiel Worthy MD LAB BLOOD ORDERABLES Final Result [facility] [address] [place] [address], * Ethanol (08/17/2025 10:53 PM EDT) Ethanol <=10 0 - 10 mg/dL 08/17/2025 11:28 PM EDT [facility] Comment:NONE DETECTED: Resul t <10 should be interpreted as NONE DETECTED. Blood Venous blood / Unknown Venipuncture / Unknown 08/17/2025 10:53 PM EDT 08/17/2025 10:59 PM EDT us Ezekiel Worthy MD LAB BLOOD ORDERABLES Final Result [facility] [address] [place] [address], [place] [phone] * Acetaminophen level (08/17/2025 10:53 PM EDT) Acetaminophen Level <5.1 <15.0 ug/mL 08/17/2025 11:28 PM EDT [facility] Blood Venous blood / Unknown Venipuncture / Unknown 08/17/2025 10:53 PM EDT 08/17/2025 10:59 PM EDT us Ezekiel Worthy MD LAB BLOOD ORDERABLES Final Result Performing Organization Address City/[facility]/ZIP Co de Phone Number [facility] [address] [place] [address], [place] [phone] * Salicylate level (08/17/2025 10:53 PM EDT) Salicylate Level <=3.0 3.0 - 30.0 mg/dL 08/17/2025 11:28 PM EDT [facility] Blood Venous blood / Unknown Venipuncture / Unknown 08/17/2025 10:53 PM EDT 08/17/2025 10:59 PM EDT us Ezekiel Worthy MD LAB BLOOD ORDERABLES Final Result [facility] [address] [place] [address], [place] [phone] * (ABNORMAL) Comprehensive metabolic panel (08/17/2025 10:53 PM EDT) Glucose 59(L) 70 - 100 mg/dL 08/17/2025 11:27 PM EDT [facility] BUN 18 6 - 19 mg/dL 08/17/2025 11:27 PM EDT [facility] Creatinine 1.0 0.4 - 1.2 mg/dL 08/17/2025 11:27 PM EDT [facility] eGFR >60.00 >60.00 mL/min/1.7 3m*2 08/17/2025 11:27 PM EDT [facility] Sodium 140 135 - 145 mmol/L 08/17/2025 11:27 PM EDT [facility] Potassium 3.7 3.4 - 5.1 mmol/L 08/17/2025 11:27 PM EDT [facility] Chloride 102 98 - 109 mmol/L 08/17/2025 11:27 PM EDT [facility] CO2 28 22 - 29 mmol/L 08/17/2025 11:27 PM EDT [facility] Anion Gap 10 6 - 16 mmol/L 08/17/2025 11:27 PM EDT [facility] Calcium 9.8 8.5 - 10.5 mg/dL 08/17/2025 11:27 PM EDT [facility] Total Bilirubin 0.4 0.2 - 1.2 mg/dL 08/17/2025 11:27 PM EDT [facility] Alkaline Phosphatase 63 40 - 129 U/L 08/17/2025 11:27 PM EDT [facility] ALT (SGPT) 141(H) 0 - 40 U/L 08/17/2025 11:27 PM EDT [facility] AST 99(H) 0 - 37 U/L 08/17/2025 11:27 PM EDT [facility] Total Protein 7.7 6.0 - 8.5 g/dL 08/17/2025 11:27 PM EDT [facility] Albumin 4.5 3.3 - 5.2 g/dL 08/17/2025 11:27 PM EDT [facility] Estimated Creatinine Clearance 103.9 mL/min 08/17/2025 11:27 PM EDT [facility] Blood Venous blood / Unknown Venipuncture / Unknown 08/17/2025 10:53 PM EDT 08/17/2025 10:59 PM EDT us Ezekiel Worthy MD LAB BLOOD ORDERABLES Final Result [facility] [address] [place] [address], from Last 3 Months Advance Directives For more information, please contact: [phone] * Full Code (Latest Code Status on File) Date Activated Date Inactivated Comments 08/18/2025 9:09 AM 08/18/2025 7:42 PM Question Answer Comments Cardiopulmonary Resuscitatio n: for a patient in cardiac or respiratory arrest (Full Code = Attempt Resuscitation, DNR = Do not attempt resuscitation): Full Code Ventilation: for a patient in respiratory distre ss: Intubate and Ventilate Care Teams Business Development Analyst Relationship Specialty Start Date End Date Required, No Pcp/Pcp Not [address] [place] [address] PCP - General Sociology Research Assistant 08/17/25
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
--- NOTE | 2025-08-19 11:31 | P.HPPS_ITS ---
HPI Date of Service: 08/19/25 Chief Complaint: Bipolar Manic with psychotic features Sources of Information: patient interviewed, chart reviewed and crisis/core team assessment reviewed HPI Subjective Notes: Yoder Warning, Conditional Voluntary and Section 12B Narrative: met with pt at 11:00am on 08/19 Patient is a 30-year-old male with history of schizoaffective disorder who presents for 3 days of erratic behavior. Patient says that when the police picked him up, he was erratic but just irritated because he got on the wrong bus. However he admits that for the past 3 days he has not been sleeping at all, has been wandering the streets, with a lot of energy, talking more than usual and rambling; he said only on the 3rd day of note asleep does start to have visual hallucinations and acting bizarre erratic ways (denies rapid spe ech/increase libido/spending money/risky behavior). Patient agrees that after the 3rd day he gets very tired and falls asleep, sometimes anywhere, even outside. Patient says that for the next 2 or 3 days he just sleeps at home and then the cycle repeats. He acknowledges to using crack cocaine and fentanyl about 2-3 days a week. Patient acknowledged some paranoid ideations even when not with manic behaviors, wondering why he seeing someone more than once, wondering if they have nefarious intentions.... On the other hand he acknowledges it just might be a coincidence. Patient says he would like help with this; he has been off medications for about a year; he has tried Risperdal and Abilify and thinks Abilify has worked better. Denies depression hx. Past Psychiatric History: Psych admission 8x last 5 years Risperdal:helped with anger; did not prevent manic episodes; did not like Abilify: helpful, not angry; Medical Evaluation Reviewed: Hospitalist Joanneal Pending [facility] Medical History (Updated 08/19/25 @ 18:33 by Morales Johnson MD) Opioid use disorder Cocaine use disorder Schizoaffective disorder, bipolar type Family History: denies Social History: raised in [place]; moved here after HS lives with mom and dad Substance History: +cocaine and Fentynal 2-3 times per crack and fenatanyl to come down Trauma History: exposed to Diagnostics Vital Signs (24Hr): Vital Signs - 24 hr 08/18/25 18:55 08/18/25 20:00 Temperature 98.9 F 97.9 F Pulse Rate 71 78 Respiratory Rate 14 Blood Pressure 114/57 L 136/61 Pulse Oximetry 98 96 Oxygen Delivery Method Room Air Room Air BMI result Body Mass Index 22.8 Meds/Allergies Meds Home Medications ?Medication ?Instructions ?Recorded ?Confirmed ?Type No Known Home Meds 08/19/25 08/19/25 Hi story Allergies Allergies Allergy/AdvReac Type Severity Reaction Status Date / Time No Known Allergies Allergy Verified 08/19/25 03:44 Mental Status Exam Mental Status Exam Narrative: Pt is alert and oriented; behavior is cooperative, friendly and calm; patient is not in distress; dressed in casual attire with unkempt hair but adequate hygiene; mood is described as good and affect congruent; eye contact appropriate; Speech is normal rate, volume and prosody and not pressured; no psychomotor agitation/retardation present; thought process is organized and goal directed; Thought content is on tx; some mild paranoid ideations; denies any SI/HI. Denies AVH and there is no evidence of perceptual disturbance. Patients insight and judgment fair Assessment & Plan Assessment & Plan (1) Schizoaffective disorder, bipolar type: Status: Acute Code(s): F25.0 - Schizoaffective disorder, bipolar type (2) Cocaine use disorder: Status: Acute Code(s): F14.10 - Cocaine abuse, uncomplicated (3) Opioid use disorder: Status: Acute Code(s): F11.90 - Opioid use, unspecified, uncomplicated Plan HPI: Patient is a 30-year-old male with history of schizoaffective disorder who presents for 3 days of erratic behavior. Patient says that when the police picked him up, he was erratic but just irritated because he got on the wrong bus. However he admits that for the past 3 days he has not been sleeping at all, has been wandering the streets, with a lot of energy, talking more than usual and rambling; he said only on the 3rd day of note asleep does start to have visual hallucinations and acting bizarre erratic ways (denies rapid speech/increase libido/spending money/risky behavior). Patient agrees that after the 3rd day he gets very tired and falls asleep, sometimes anywhere, even outside. Patient says that for the next 2 or 3 days he just sleeps at home and then the cycle repeats. He acknowledges to using crack cocaine and fentanyl about 2-3 days a week. Patient acknowledged some paranoid ideations even when not with manic behaviors, wondering why he seeing someone more than once, wondering if they have nefarious intentions.... On the other hand he acknowledges it just might be a coincidence. Patient says he would like help with this; he has been off medications for about a year; he has tried Risperdal and Abilify and thinks Abilify has worked better. Denies depression hx. Formulation/clinical reasoning: Patient has a history of being diagnosis schizoaffective disorder; to this blurb writer it is not really clear what is going on, whether or not his intermittent erratic behavior and psychotic symptoms or fueled by drug use (patient actively seeks out crack cocaine, uses that extensively for 3 days and then uses fentanyl to come down off his cocaine high) or if patient has an organic psychotic illness. It seems very unlikely that he has a manic episode every 5 days... It is possible that he does have some underlying psychotic symptoms that are exacerbated with his drug use but again it is not really clear. Patient says that on Abilify he does better, that he does not really have those 3 day manic type episodes and he was more productive, working consistently. Assembly Machine Operator reviewed risks/side effects of antipsychotics and patient agrees to restart Abilify. Patient refuses to sign in. He is cooperative and pleasant but says he wants to go home and though he is willing to get back on medication he does not want to stay. Currently he is organized in speech and behavior, with no manic or overt psychotic symptoms. Will continue to monitor patient but if he remains stable will proceed with discharge. Patient also has no interest at all in any kind of substance abuse treatment and is ambivalent about whether he wants to stop using at this time. Plan: Twelve B Q 15 minute checks Start Abilify 5 mg daily Gather collateral Patient educated on: diagnosis, medication risk/benefits, substance abuse and therapeutic strategies Informed Consent: understands and further education needed Reason for continued inpatient stay Substantial Risk for: rapid decompensation Statement Statement: I have reviewed the history and physical and performed a pertinent examination on my patient. No changes have occurred unless specified. If the History and Physical was not performed prior to admission, the Hospitalist's service will be consulted for completing the admission physical. Time Spent With Patient Time: Total time managing care of this patient today ____ minutes.
[2025-08-19 20:00] VITALS: BP 125/74; PULSE 87; RESP 16; TEMP 37.1; O2SAT 98
[2025-08-20 09:09] VITALS: BP 126/84; PULSE 79; TEMP 37.2; O2SAT 99
--- NOTE | 2025-08-20 15:40 | HO.PSYCHPN ---
Subjective Subjective Date of Service: 08/20/25 Reason For Visit: Bipolar Manic with psychotic features Interim History: Met with patient; discussed with team Patient remains in good behavioral and impulse control and with organized speech and behavior. Reports that he feels good. He says the Abilify has not caused any problems and he is happy to continue taking it. Patient said he is open to getting on a long-acting injectable Abilify but is not willing to remain on the unit any longer for this to happen. Animal Behaviorist discussed whether or not symptoms are caused by substance abuse and he said he thinks it might be. Again however he is not interested in any help with substance abuse treatment. Mental Status Exam Mental Status Exam Narrative: Pt is alert and oriented; behavior is cooperative, friendly and calm; patient is not in distress; dressed in casual attire with unkempt hair but adequate hygiene; mood is described as good and affect congruent; eye contact appropriate; Speech is normal rate, volume and prosody and not pressured; no psychomotor agitation/retardation present; thought process is organized and goal directed; Thought content is on tx; some mild paranoid ideations; denies any SI/HI. Denies AVH and there is no evidence of perceptual disturbance. Patients insight and judgment fair Diagnostics Vital Signs (24Hr): Vital Signs - 24 hr 08/19/25 20:00 08/20/25 09:09 Temperature 98.7 F 99.0 F Pulse Rate 87 79 Respiratory Rate 16 Blood Pressure 125/74 126/84 Pulse Oximetry 98 99 Oxygen Delivery Method Room Air Room Air BMI result Body Mass Index 22.8 Medications Medications Current Medications Acetaminophen (Acetaminophen 325 Mg Tablet) 650 mg PO Q6H PRN PRN Reason: Headache/Pain, Scale 1-10 Al Hydroxide/Mg Hydroxide (Magnesium Hydrox/Alum Hydrox 30 Ml Oral.Susp) 30 ml PO Q6H PRN PRN Reason: Heartburn/Nausea Aripiprazole (Aripiprazole 5 Mg Tablet) 5 mg PO DAILY PRINCESS Last Admin: 08/20/25 08:20 Dose: 5 mg Hydroxyzine HCl (Hydroxyzine Hcl 25 Mg Tablet) 25 mg PO Q6H PRN PRN Reason: mild anxiety Magnesium Hydroxide (Milk Of Magnesia 30 Ml Oral.Susp) 30 ml PO DAILY PRN PRN Reason: Constipation Nicotine Polacrilex (Nicotine Polacrilex 2 Mg Gum) 4 mg BUCCAL Q2H PRN PRN Reason: Nicotine Cravings Olanzapine (Olanzapine 5 Mg Tablet) 5 mg PO Q4H PRN PRN Reason: psychosis, roberto, agitation Trazodone HCl (Trazodone Hcl 50 Mg Tablet) 50 mg PO BEDTIME MRX1 PRN PRN Reason: Insomnia Allergies Allergies Allergy/AdvReac Type Severity Reaction Status Date / Time No Known Allergies Allergy Verified 08/19/25 03:44 Assessment & Plan Assessment & Plan (1) Schizoaffective disorder, bipolar type: Status: Acute Code(s): F25.0 - Schizoaffective disorder, bipolar type (2) Cocaine use disorder: Status: Acute Code(s): F14.10 - Cocaine abuse, uncomplicated (3) Opioid use disorder: Status: Acute Code(s): F11.90 - Opioid use, unspecified, uncomplicated Plan HPI: Patient is a 30-year-old male with history of schizoaffective disorder who presents for 3 days of erratic behavior. Patient says that when the police picked him up, he was erratic but just irritated because he got on the wrong bus. However he admits that for the past 3 days he has not been sleeping at all, has been wandering the streets, with a lot of energy, talking more than usual and rambling; he said only on the 3rd day of note asleep does start to have visual hallucinations and acting bizarre erratic ways (denies rapid speech/increase libido/spending money/risky behavior). Patient agrees that after the 3rd day he gets very tired and falls asleep, sometimes anywhere, even outside. Patient says that for the next 2 or 3 days he just sleeps at home and then the cycle repeats. He acknowledges to using crack cocaine and fentanyl about 2-3 days a week. Patient acknowledged some paranoid ideations even when not with manic behaviors, wondering why he seeing someone more than once, wondering if they have nefarious intentions.... On the other hand he acknowledges it just might be a coincidence. Patient says he would like help with this; he has been off medications for about a year; he has tried Risperdal and Abilify and thinks Abilify has worked better. Denies depression hx. Formulation/clinical reasoning: Patient has a history of being diagnosis schizoaffective disorder; to this grant writer it is not really clear what is going on, whether or not his intermittent erratic behavior and psychotic symptoms or fueled by drug use (patient actively seeks out crack cocaine, uses that extensively for 3 days and then uses fentanyl to come down off his cocaine high) or if patient has an organic psychotic illness. It seems very unlikely that he has a manic episode every 5 days... It is possible that he does have some underlying psychotic symptoms that are exacerbated with his drug use but again it is not really clear. Patient says that on Abilify he does better, that he does not really have those 3 day manic type episodes and he was more productive, working consistently. Animal Behaviorist reviewed risks/side effects of antipsychotics and patient agrees to restart Abilify. Patient refuses to sign in. He is cooperative and pleasant but says he wants to go home and though he is willing to get back on medication he does not want to stay. Currently he is organized in speech and behavior, with no manic or overt psychotic symptoms. Will continue to monitor patient but if he remains stable will proceed with discharge. Patient also has no interest at all in any kind of substance abuse treatment and is ambivalent about whether he wants to stop using at this time. Hospital course: 08/20 Patient remains in good behavioral and impulse control and with organized speech and behavior. Reports that he feels good. He says the Abilify has not caused any problems and he is happy to continue taking it. Patient said he is open to getting on a long-acting injectable Abilify but is not willing to remain on the unit any longer for this to happen. Animal Behaviorist discussed whether or not symptoms are caused by substance abuse and he said he thinks it might be. Again however he is not interested in any help with substance abuse treatment. -social work talked with patient's father who pretty much corroborates patient's report. Patient's 12 B is due tomorrow. Will keep him another day just to see if he decompensates at all, however As he remains in good behavioral and impulse control will proceed with discharge Plan: Twelve B Q 15 minute checks Start Abilify 5 mg daily Gather collateral Patient educated on: diagnosis, medication risk/benefits and substance abuse Informed Consent: understands Reason for continued inpatient stay Substantial Risk for: stable for discharge and rapid decompensation Time Spent With Patient Time: Total time managing care of this patient today ____ minutes.
[2025-08-20 20:00] VITALS: BP 128/66; PULSE 75; TEMP 36.9; O2SAT 99
--- NOTE | 2025-08-20 20:37 | P.DS_ITS ---
DS: Providers Provider Date of Service: 08/21/25 Date of admission: 08/18/25 18:21 Date of discharge: 08/21/25 Primary care physician: Unknown Physician Attending physician on admission: Morales Johnson Consults: 08/19/25 08:36 Consult to Hospitalist Routine Comment: Consulting Provider: [facility] Reason For Exam: transfer pt Attending physician on discharge: Morales Johnson DS: Diagnosis Discharge Diagnosis (1) Schizoaffective disorder, bipolar type: Status: Acute (2) Cocaine use disorder: Status: Acute (3) Opioid use disorder: Status: Acute DS: Medications Discharge Medications Home Medications: Previous Rx's ?Medication ?Instructions ?Recorded aripiprazole 5 mg tablet (Abilify) 5 mg PO DAILY 30 da ys #30 tabs 08/20/25 Mental Status Exam Mental Status Exam Narrative: Pt is alert and oriented; behavior is cooperative, friendly and calm; patient is not in distress; dressed in casual attire with adequate hygiene and grooming; mood is described as good and affect congruent; eye contact appropriate; Speech is normal rate, volume and prosody and not pressured; no psychomotor agitation/retardation present; thought process is organized and goal directed; Thought content is on tx; no delusional ideations expressed; denies any SI/HI. Denies AVH and there is no evidence of perceptual disturbance. Patients insight and judgment fair DS: Summary Hospital Course Hospital Course: HPI: Patient is a 30-year-old male with history of schizoaffective disorder who presents for 3 days of erratic behavior. Patient says that when the police picked him up, he was erratic but just irritated because he got on the wrong bus. However he admits that for the past 3 days he has not been sleeping at all, has been wandering the streets, with a lot of energy, talking more than usual and rambling; he said only on the 3rd day of note asleep does start to have visual hallucinations and acting bizarre erratic ways (denies rapid speech/increase libido/spending money/risky behavior). Patient agrees that after the 3rd day he gets very tired and falls asleep, sometimes anywhere, even outside. Patient says that for the next 2 or 3 days he just sleeps at home and then the cycle repeats. He acknowledges to using crack cocaine and fentanyl about 2-3 days a week. Patient acknowledged some paranoid ideations even when not with manic behaviors, wondering why he seeing someone more than once, wondering if they have nefarious intentions.... On the other hand he acknowledges it just might be a coincidence. Patient says he would like help with this; he has been off medications for about a year; he has tried Risperdal and Abilify and thinks Abilify has worked better. Denies depression hx. Formulation/clinical reasoning: Patient has a history of being diagnosis schizoaffective disorder; to this commercial insurance underwriter it is not really clear what is going on, whether or not his intermittent erratic behavior and psychotic symptoms or fueled by drug use (patient actively seeks out crack cocaine, uses that extensively for 3 days and then uses fentanyl to come down off his cocaine high) or if patient has an organic psychotic illness. It seems very unlikely that he has a manic episode every 5 days... It is possible that he does have some underlying psychotic symptoms that are exacerbated with his drug use but again it is not really clear. Patient says that on Abilify he does better, that he does not really have those 3 day manic type episodes and he was more productive, working consistently. Associate [employer] reviewed risks/side effects of antipsychotics and patient agrees to restart Abilify. Patient refuses to sign in. He is cooperative and pleasant but says he wants to go home and though he is willing to get back on medication he does not want to stay. Currently he is organized in speech and behavior, with no manic or overt psychotic symptoms. Will continue to monitor patient but if he remains stable will proceed with discharge. Patient also has no interest at all in any kind of substance abuse treatment and is ambivalent about whether he wants to stop using at this time. Hospital course: 08/20 Patient remains in good behavioral and impulse control and with organized speech and behavior. Reports that he feels good. He says the Abilify has not caused any problems and he is happy to continue taking it. Patient said he is open to getting on a long-acting injectable Abilify but is not willing to remain on the unit any longer for this to happen. Associate [employer] discussed whether or not symptoms are caused by substance abuse and he said he thinks it might be. Again however he is not interested in any help with substance abuse treatment. -social work talked with patient's father who pretty much corroborates patient's report. Patient's 12 B is due tomorrow. Impression: Patient's 12 B has come due and he has remained in good behavioral and impulse control with organized speech and behavior. Will proceed with holley sheikh. For now, will leave patient's diagnosis as provisionally schizoaffective disorder (verse drug-induced verse bipolar versus schizophrenia) as it is not clear what is the etiology of his manic episodes (organic verse drug-induced) and he has some mild paranoid thoughts at baseline. Also, he says Abilify is helpful for mood stability which supports likelihood of patient having organic psychiatric illness. Patient of course remains vulnerable to continued substance abuse as he minimizes his struggles with addiction (and is ambivalent about discontinuing use) and he is vulnerable to decompensation; however this is chronic and can be worked out with his outpatient provider. As mentioned he is not in imminent danger of harm to self or others and does not rise to the level of involuntary commitment. He is appropriate to return to the community for treatment. His request for discharge honored. Medications: Started Abilify 5 mg daily Time spent discussing smoking cessation with patient: 3 to 10 minutes Status at Discharge Functional status at discharge: independent ambulation Overall status at discharge: patient is back to baseline Time Spent with Patient Time attestation: Total time managing care of this patient today 40____ minutes. Time spent: Greater than 30 minutes Specific discharge activities: Met with patient; discussed with team; charting; prescriptions Discharge Plan Discharge Anticipated Discharge Date/Time: 08/21/25 11:30 Patient Disposition: Home, Self-Care Discharge Diagnosis: Schizoaffective DO, bipolar type (Provisional dx....r/o drug induced) Referrals: Physician,Unknown J [Primary Care Provider, Medical] - 1 Week Discharge Medications: New aripiprazole [Abilify] 5 mg Tablet 5 mg PO DAILY 30 Days Qty: 30 0RF Discharge Orders: Discharge Order (Routine); Ordered 08/21/25 Ordered By: Morales Johnson Diet: Regular diet Activity on Discharge: As tolerated Stand Alone Forms: Patient Portal Discharge page Print Language: Latvian Care Plan Goals: Maintain mood and safe behaviors Take medications as prescribed Continue to pursue sobriety Practice coping skills Continue with outpatient providers and reach out to them as needed Health Concerns: Mood stability and behaviors Sobriety Plan of Treatment: Follow up with your PCP, psychiatric provider and other outpatient providers regarding above concerns Take medications as prescribed Assessment: Risk assessment at time of discharge:? Patient was interviewed prior to discharge and found to be fully oriented and without any SI or HI. Patient has improved insight and judgment and wants to continue treatment. Patient is not in imminent risk of harm to self or others and has a safety plan that includes presenting to the closest ER or calling 911 if feeling unsafe.? Patient has been observed closely by nursing and unit staff throughout admission; patient has not engaged in any behaviors that suggest dangerousness to self or others and has demonstrated appropriate behaviors and impulse control
[2025-08-21 08:00] VITALS: BP 138/61; PULSE 98; TEMP 37.2; O2SAT 99
[2025-08-21] MEDS: Naloxone HCl Nasal TAKE HOME 4 MG SPRAY 8 MG NOSTRILALT (10:57)
== END 2025-08-21 12:49 | disposition home or self-care (01) | DRG 750 ==
PROVIDERS: Admitting Provider Psychiatry & Neurology Psychiatry; Visit Provider Psychiatry & Neurology Psychiatry
DX: F25.0 Schizoaffective disorder, bipolar type (principal); F11.90 Opioid use, unspecified, uncomplicated; F14.10 Cocaine abuse, uncomplicated; Z79.899 Other long term (current) drug therapy; Z87.891 Personal history of nicotine dependence

== ENCOUNTER → 2025-08-18 18:21 | Outpatient (BNV) | payer MEDICAID, SELFPAY | PROVIDERS: Admitting Provider Psychiatry & Neurology Psychiatry; Visit Provider Nurse Practitioner Family | DX: F31.12 Bipolar disorder, current episode manic without psychotic features, moderate (principal) | CPT/HCPCS: 99221 ==

== ENCOUNTER → 2025-08-18 18:21 | Outpatient (BNV) | payer OTHER, SELFPAY | PROVIDERS: Admitting Provider Psychiatry & Neurology Psychiatry; Visit Provider Psychiatry & Neurology Psychiatry | DX: F25.0 Schizoaffective disorder, bipolar type (principal); F14.10 Cocaine abuse, uncomplicated; F11.90 Opioid use, unspecified, uncomplicated | CPT/HCPCS: 99232 ==